=== PATIENT | female | born 1980 | race Hispanic/Latino ===

== ENCOUNTER 2016-12-28 12:27 | Emergency (ER) | payer MEDICAID ==
[2016-12-28 13:08] VITALS: BMI 31.0
--- NOTE | 2016-12-28 15:07 | US ---
EXAM: US Biophysical Profile Without Non-Stress Testing EXAM DATE/TIME: 12/28/2016 1:09 PM CLINICAL HISTORY: 36 years old, female; Signs and symptoms; Other: No fm; ; Additional info: No fm x 12 hrs. P6117. 25w 2d TECHNIQUE: Real-time ultrasound of the maternal pelvis for biophysical profile evaluation with image documentation. COMPARISON: No relevant prior studies available. FINDINGS: There is a single live intrauterine fetus in breech presentation. Estimated gestational age is 30 weeks 2 days. Estimated due date is 03/06/2017. Estimated gestational age by date is 28 weeks 6 days. Estimated weight is 1327 g (2 lbs. 15 oz.), at approximately 44 percentile. heart rate is 142 beats per minute. Placenta is posterior. Leading edge of placenta is 1.8 cm from internal os. Amniotic fluid volume is normal , BRIAN of 16.5. Cervix is closed, measuring 4 cm in length. BPD: 8.35 cm, 33 weeks 4 days HC: 27.2 cm, 29 weeks 5 days AC: 23.7 cm, 28 weeks FL: 5.6 cm, 29 weeks 4 days The visualized parts include 4 chamber heart, kidneys, 3 vessel cord with midline abdominal insertion, fluid filled stomach and bladder, limited spine. Biophysical profile was performed with following scores: tone 2 breathing 2 movements 2 Amniotic fluid 2 Total score is 8 of 8. IMPRESSION: 1. Single live intrauterine fetus at 30 weeks 2 days, breech presentation and low-lying posterior placenta. 2. Normal biophysical profile score.
--- NOTE | 2016-12-28 15:38 | OBHP ---
Datetime: 12/28/2016 13:00 IP Adm Impression: , intrauterine IP Chief Complaint Other: No movement IP Admit Plan: Observation/Evaluation Admit Comment, IP Provider: 36 y.o. , LMP unsure, BRENNA 04/10/17, per patient based on unsure LM P (had had a miscarriage 05/2016) - not yet had ultrasound in , EGA 25w 2d c/o no FM since 22 00 hours 12/27/16. Tired cold ice; took a shower; went for a walk - no improvement. Denies LOF, VB, contractions; +/- occ mild tightening to abdomen. care; [facility] - ; noted for A1 GDM. Toda y's fasting 86; 2 hr after breakfast 126. States average fasting 80s-100s; 2 hr post prandial <= 110s . last appointmtne 12/26/16; next appointment 01/09/17. States not yet seen by MFM. P Ob: x 7: 1) 2004, male, 4lb at 29 weeks; 2) 2006, female, 7lb; 3) 2007, female, 7lb 9oz; - all at [facility]; 4) 2008, female, 7lb 7oz; 5) 2009, female, 6lb 9oz - [place] [facility]; 6) 2011, male, 10lb, home delivery, reportedly, no GDM, (+) "toxemia". 7) 2013, male, 7lb, UMD, no GDM or pre -eclampsia. 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 Has had surgery x 2. Not on any meds. Last cardiac w ork up/evaluation, 11/2014. States has no exertional limitations. 2) cluster migraines PSH: 1) Age 13 - tonsillectomy. 2) 1997, laparoscopic left oophorectomy NKDA Meds: PNV - QD Soc Hx: denies current tobacco use; stopped a few years ago. Deines illicit drug or EtOH use. Wi th FOB x 2 yrs; lives with him and all her children. Unemployed Fam Hx: Mother alive 7 y.o. - h/o HTN, DM; s/P CVA x 2. Father age 64 - prostate cancer. Mat aunt - unk cancer. P.E.: as above. Mildly obese, in NAD. Awake, alert, oriented to time, person and place. Accompani ed by FOB Assessment: 36 y.o. P6117, 25w 2d, A1GDM, h/o cardiac arrhythmia c/o no FM x approx 14 hours. Nicola adam interview, FM witnessed. Bedside sono performed: (+) cardiac activity, (+) FBM; (+) FM; grossly normal amnioinic fluid. Clinically stable Plan: 1) OB ultrasound 2) Diabetic diet 3) Observe Addendum: 1515 hours - Patient returns from ultrasound: BRENNA 03/06/17. AGA 30w 2d; posterior, low-lying placenta. BRIAN 16 .56 cm. BPS 8/8. Assessment: 36 y.o. P6117, 30w 2d, A1 GDM, findings at ultrasound discussed with patient and FOB. Category 1 tracing. Clinically stable. Plan: 1) Discharge home 2) Reviewed S/S PTL 3) Keep scheduled appointments Pelvic Type - PN: Not Done Extremities - PN: Normal Abdomen - PN: Normal Back - PN: Normal Breast - PN: Not Done Lungs - PN: Normal Heart - PN: Normal Thyroid - PN: Not Done Neurologic - PN: Normal HEENT - PN: Normal General - PN: Normal FHR - Baseline A Provider: 150 Contraction Comments Provider: none Comments, ACOG Physical Exam: Abdomen: Obese. Gravid. Soft. Non tender. FM visualized during interv iew. Patient then reported feeling movement All other systems reviewed and are negative Vital Signs Provider: Reviewed Dilatation, Provider: deferred Genitourinary Exam: Not Done DTRs - PN: Not Done
[2016-12-28 19:18] VITALS: BP 116/60; PULSE 84; TEMP 99
== END 2016-12-28 15:03 | disposition home or self-care (01) ==
LOC: C.EROB 12:27
DX: O36.8130 Decreased fetal movements, third trimester, not applicable or unspecified (principal); O24.419 Gestational diabetes mellitus in pregnancy, unspecified control; Z3A.30 30 weeks gestation of pregnancy

== ENCOUNTER 2017-03-08 11:17 | Emergency (ER) | payer MEDICAID ==
--- NOTE | 2017-03-08 12:28 | OBHP ---
Datetime: 03/08/2017 12:11 IP Adm Impression: Term, intrauterine ; No Active Labor IP Chief Complaint Other: Back Pain IP Admit Plan: Observation/Evaluation; Discharge home Admit Comment, IP Provider: 36yo with an IUP at 38.6wks based on OB sonogram done 01/20/2017 a t 32wks gestation, reports here today c/0 intermittent episodes of Low back pain. She denies any VB o r LOF. She has GDMA 1 and goes to [facility] for care. Denies dysuria and frequency. TOCO- occasional uterine activity, FHR- Category 1 , Cx- 0/10/-3, Presentation as per limited beds althea sonogram; cephalic, Accucheck- 144 Assessment: IUP at 38.6wks Not in active labor GDMA1 Plan: D/C Home Follow up with the OB clinic in 2 days. Labor instructions given. Extremities - PN: Normal Abdomen - PN: Normal Lungs - PN: Normal Heart - PN: Normal Neurologic - PN: Normal General - PN: Normal Presentation-Admit: Vertex FHR - Baseline A Provider: 34.4 Membranes, Provider: Intact Contraction Comments Provider: Occasional Gestation - Est Wks by US: 34.4 EGA AdmitDate IP: 38.6 Vital Signs Provider: Reviewed IP Chief Complaint: Maternal discomfort NICHD Accel Fetus A IP Provider: 15X15 FHR Category Provider Fetus A: Category I NICHD Decel Fetus A IP Provider: None Dilatation, Provider: 0 Effacement, Provider: 10 Station, Provider: -3 Genitourinary Exam: Normal
[2017-03-08 16:36] VITALS: BP 131/83; PULSE 107; RESP 18; TEMP 98.5; O2SAT 93
== END 2017-03-08 12:35 | disposition home or self-care (01) ==
LOC: C.EROB 11:17
DX: O26.893 Other specified pregnancy related conditions, third trimester (principal); Z3A.38 38 weeks gestation of pregnancy

== ENCOUNTER 2017-03-17 11:42 | Inpatient (IN) | payer MEDICAID, OTHER ==
[2017-03-17 12:41] VITALS: BMI 31.6
[2017-03-17] MEDS ORDERED: Penicillin G 5 Million Unit Vial IVPB ONE ×2 (12:41→13:24)
[2017-03-17] MEDS ORDERED: Lactated Ringer's 1,000 ML IV SCH (12:45)
--- NOTE | 2017-03-17 13:01 | OBADHP ---
Datetime: 03/17/2017 12:46 Admit Comment, IP Provider: chief complaint-back pain and lower abdominal pain HPI 36 y/o at 41.4 wga with c/o back pain and lower abdominal pain for last few days.was seen in clinic today and sent over course AMA; GDMA1 diet controlled PMH denies PSH laparoscopic myomectomy; cholecystectomy OBGYN HX ; hx of PPH with 7th baby; had blood transfsuion Social hx denies tobacco use with A/P 36 y/o at 41.4 wga with back pain and abdominal pain.patient GDAM1.Post date -admit for induction of labor -start pen G for unknwon GBS -Cytotec 50mcg pox1 -monitor closely -type and cross for 2 units Pelvic Type - PN: Adequate Extremities - PN: Normal Abdomen - PN: Normal Back - PN: Normal Lungs - PN: Normal Heart - PN: Normal Neurologic - PN: Normal General - PN: Normal Weight - Estimated: 3400 Presentation-Admit: Vertex Contraction Comments Provider: irregular Gestation - Est Wks by US: 41.4 IP Hx Assessment: The History has been Reviewed and is Current Vital Signs Provider: Reviewed; Within Normal Limits IP Chief Complaint: Uterine contractions FHR Category Provider Fetus A: Category I Dilatation, Provider: 2 Effacement, Provider: 50 Station, Provider: -3 Genitourinary Exam: Normal DTRs - PN: Normal EGA AdmitDate IP: 41.4 IP Adm Impression: Postterm, intrauterine IP Admit Plan: Admit to unit; Initiate labor induction protocol Datetime: 03/08/2017 12:11 IP Chief Complaint Other: Back Pain FHR - Baseline A Provider: 34.4 Membranes, Provider: Intact NICHD Accel Fetus A IP Provider: 15X15 NICHD Decel Fetus A IP Provider: None Datetime: 12/28/2016 13:00 Breast - PN: Not Done Thyroid - PN: Not Done HEENT - PN: Normal Comments, ACOG Physical Exam: Abdomen: Obese. Gravid. Soft. Non tender. FM visualized during interv iew. Patient then reported feeling movement All other systems reviewed and are negative
[2017-03-17 13:37] LABS: SQUAMOUS EPITHIAL 4 /hpf (0-5); URINE BILIRUBIN NEGATIVE (NEGATIVE); URINE BLOOD NEGATIVE (NEGATIVE); URINE CALCIUM OXALATE CRYSTALS OCC /hpf (<OCC); URINE CLARITY Clear (Clear); URINE COLOR Yellow (YELLOW); URINE GLUCOSE (UA) NORMAL (Normal); URINE LEUKOCYTE ESTERASE 1+ Leu/uL (Negative); URINE NITRATE NEGATIVE (NEGATIVE); URINE PROTEIN NEGATIVE (NEGATIVE); URINE UROBILINOGEN NORMAL mg/dL (0.2-1.0)
[2017-03-17 13:48] LABS: ALBUMIN 3.6 g/dL (3.5-5.0); CALCIUM 8.7 mg/dl (8.6-10.4); GFR AFRICAN-AMERICAN > 60; GFR NON-AFRICAN AMERICAN > 60
[2017-03-17 13:57] LABS: ALT/SGPT 16 U/L (9-52); AST/SGOT 30 U/L (14-36); BLOOD UREA NITROGEN 9 mg/dL (7-17)
[2017-03-17 14:19] LABS: BASO % 0.4 % (0.0-2.0); EOS % 0.1 % (0.0-4.0); HEMOGLOBIN 10.9 g/dL (11.0-16.0); LYMPH # 2.2 K/uL (1.0-4.3); LYMPH % 23.1 % (20.0-40.0); MEAN CELL VOLUME 83.9 fL (81.0-99.0); MEAN CORPUSCULAR HEMOGLOBIN 28.6 pg (27.0-31.0); MEAN CORPUSCULAR HGB CONC 34.1 g/dL (33.0-37.0); MEAN PLATELET VOLUME 8.4 fL (7.2-11.7); MONO # 0.5 K/uL (0.0-0.8); MONO % 4.9 % (0.0-10.0); NEUT % 71.5 % (50.0-75.0); RBC 3.81 Mil/uL (3.80-5.20); RED CELL DISTRIBUTION WIDTH 13.7 % (11.5-14.5); WHITE BLOOD COUNT 9.7 K/uL (4.8-10.8)
[2017-03-17] MEDS ORDERED: Bupivacaine 0.125%/FentaNYL 200 ML EPI ONE (15:59)
[2017-03-17] MEDS ORDERED: Oxytocin 30 UNIT 30 UNITS/500 ML BAG IV PRN (17:19)
--- NOTE | 2017-03-17 17:21 | OBPN ---
Datetime: 03/17/2017 17:17 IP Progress Impression: Reassuring heart rate IP Procedures: Artificial ROM; Sterile Vag Exam IP Progress Plan: Continue present management Contraction Comments Provider: every 3-4min IP Progress Note Comment: S-patient cofmortable wth epidural O-VSS Afebrile FHT cat1 Tooc ctx q 3-4min sve 3-4/70/-2 A/P Patient being induced for post dates s/p cytotecx1 arom done start pit continue to monitor closely Vital Signs Provider: Reviewed FHR Category Provider Fetus A: Category I Dilatation, Provider: 3-4 Effacement, Provider: 70 Station, Provider: -2 Datetime: 03/17/2017 12:46 Gestation - Est Wks by US: 41.4 Weight - Estimated: 3400 Presentation-Admit: Vertex Datetime: 03/08/2017 12:11 Membranes, Provider: Intact FHR - Baseline A Provider: 34.4 NICHD Accel Fetus A IP Provider: 15X15 NICHD Decel Fetus A IP Provider: None
[2017-03-17] MEDS ORDERED: Oxytocin 30 UNIT 30 UNITS/500 ML BAG IV ONE (18:22)
[2017-03-17] MEDS ORDERED: Oxycodone/Acetaminophen 5/325 mg Tab PO PRN (21:59)
--- NOTE | 2017-03-17 21:59 | OBDS ---
DELIVERY PERSONNEL Anesthesiologist: Kenya Chew MD MATERNAL INFORMATION Delivery Anesthesia: Epidural Estimated Blood Loss (ml): 300 Provider Comments: of a male infant from [place] position body and shoulders delivered without difficulty cord clamped and cut.cord blood collected.prophylactically im metehrgine 0.2mg im given.iv fluids mixed with pitocin started.placenta spontaneously delivered.first degree perineal laceration repaired with 2-0 chromic Fundus firm patient and stable cytotec 1000mcg placed rectally bleeding minimal LABOR SUMMARY EDC: 03/06/2017 00:00 No. Babies in Womb: 1 Attempted: No Labor Anesthesia: Epidural LABOR INFORMATION Onset of Labor: 03/17/2017 16:00 Complete Dilatation: 03/17/2017 21:14 Cervical Ripening Agents: Cytotec @ (Annotations: 50) Group B Beta Strep: Done, Result Unknown Steroids Given: None Reason Steroids Not Administered: Not Applicable MEMBRANES Membranes Rupture Method: Artificial Rupture of Membranes: 03/17/2017 17:15 Length of Rupture (hrs): 4.15 Amniotic Fluid Color: Clear Amniotic Fluid Amount: None Amniotic Fluid Odor: Normal STAGES OF LABOR Stage 1 hrs: 5 Stage 1 min: 14 Stage 2 hrs: 0 Stage 2 min: 10 Stage 3 hrs: 0 Stage 3 min: 3 Total Time in Labor hrs: 5 Total Time in Labor min: 27 VAGINAL DELIVERY Episiotomy: None Laceration Extension: First Degree Laceration Type: Perineal Laceration Repair: Yes Laceration Repair Note: repaired with figure of 8 stitch using 2-0 chromic Sponge Count Correct: Yes; Vaginal Sweep Performed Sharps Count Correct: Yes BABY A INFORMATION Infant Delivery Date/Time: 03/17/2017 21:24 Method of Delivery: Vaginal Born in Route : No : N/A Forceps: N/A Vacuum Extraction: N/A Shoulder Dystocia : No SHOULDER DYSTOCIA BABY A Infant Delivery Date/Time: 03/17/2017 21:24 PRESENTATION/POSITION BABY A Presentation: Cephalic Cephalic Presentation: Vertex Vertex Position: Left Occipital Anterior Breech Presentation: N/A PLACENTA INFORMATION BABY A Placenta Delivery Time : 03/17/2017 21:27 Placenta Method of Delivery: Spontaneous Placenta Status: Delivered SCORES BABY A Heart Rate 1 min: >100 bpm Resp Effort 1 min: Good Cry Reflex Irritability 1 min: Cough or Sneeze or Pulls Away Muscle Tone 1 min: Active Motion Color 1 min: Body [place], Extremities Blue SCORE 1 MIN: 9 Heart Rate 5 min: >100 bpm Resp Effort 5 min: Good Cry Reflex Irritability 5 min: Cough or Sneeze or Pulls Away Muscle Tone 5 min: Active Motion Color 5 min: Body [place], Extremities Blue SCORE 5 MIN: 9 INFANT INFORMATION BABY A Gestational Age at Delivery: 41.4 Gestational Status: Post-term Infant Outcome : Liveborn Infant Condition : Stable Sex: Male IDENTIFICATION/MEDS BABY A ID Band Number: [id number] Sensor Number: [id number] WEIGHT/LENGTH BABY A Birthweight (gms): 3625 Infant Weight (lb): 8 Infant Weight (oz): 0 Length Inches: 20.00 Infant Length cms: 50.8 CORD INFORMATION BABY A No. Cord Vessels: 3 [place]uch[place] Cord : N/A Cord Blood Taken: Yes Suction: Mouth
[2017-03-17] MEDS ORDERED: Benzocaine/Menthol 20%-0.5% Topical Spray (60 ml) TOP SCH (22:00)
[2017-03-18 06:44] LABS: BASO % 0.2 % (0.0-2.0); EOS # 0.1 K/uL (0.0-0.7); EOS % 0.5 % (0.0-4.0); HEMOGLOBIN 10.4 g/dL (11.0-16.0); LYMPH # 2.5 K/uL (1.0-4.3); LYMPH % 23.4 % (20.0-40.0); MEAN CELL VOLUME 84.4 fL (81.0-99.0); MEAN CORPUSCULAR HEMOGLOBIN 28.8 pg (27.0-31.0); MEAN CORPUSCULAR HGB CONC 34.1 g/dL (33.0-37.0); MEAN PLATELET VOLUME 8.2 fL (7.2-11.7); MONO # 0.5 K/uL (0.0-0.8); MONO % 5.1 % (0.0-10.0); NEUT # 7.5 K/uL (1.8-7.0); NEUT % 70.8 % (50.0-75.0); RBC 3.6 Mil/uL (3.80-5.20); RED CELL DISTRIBUTION WIDTH 13.5 % (11.5-14.5); WHITE BLOOD COUNT 10.6 K/uL (4.8-10.8)
[2017-03-18 11:27] LABS: BLOOD UREA NITROGEN 8 mg/dL (7-17); CALCIUM 8.3 mg/dl (8.6-10.4); GFR AFRICAN-AMERICAN > 60; GFR NON-AFRICAN AMERICAN > 60
[2017-03-19 00:31] VITALS: RESP 20
[2017-03-19 07:52] VITALS: BP 114/67; PULSE 80; O2SAT 97
[2017-03-19] MEDS ORDERED: Influenza Vaccine 60 mcg/0.5 mL SYR (4YR UP) IM ONE (10:04)
--- NOTE | 2017-03-19 10:33 | OBDCSUM ---
Datetime: 03/08/2017 12:22 Discharge Instructions, Provider: Routine instructions given Discharge Diagnosis, Provider: Postterm Delivery Contraception discussed, Prov: Yes Disch Activity Restrictions: No sexual activity; Nothing in vagina - [place], tampons, douche Discharge Comment, Provider: f/u in [place] for depo and for sched of btl Contraception after Delivery: Depo-Provera; Tubal Ligation
--- NOTE | 2017-03-19 10:35 | OBPPN ---
Datetime: 03/19/2017 10:28 PP Pain Prov: Within normal limits PP Nausea Prov: Denies PP Flatus Prov: Yes PP BM Prov: Yes PP Breasts Prov: Normal PP Heart Prov: Normal PP Lungs Prov: Normal PP Abdomen/Uterus Prov: Normal PP Lochia Prov: Normal PP Vulva/Perineum Prov: Normal PP CVA Tenderness Prov: Normal PP Extremities Prov: Normal PP Progress Prov: Not Applicable PP Impression Prov: Normal progression PP Plan Prov: Discharge PP Progress Note Prov: s: no c/o. pt states she is not going to breastfeed. she understands benefits of . o: hgb 10.4 i: p: dc home f/u in clinic for depo rout pp precautions IP PP Procedures: None Datetime: 03/18/2017 07:38 PP C/S Incision Prov: Not Applicable
[2017-03-19 20:47] VITALS: TEMP 98
== END 2017-03-19 13:45 | disposition home or self-care (01) | DRG 372 ==
LOC: C.EROB 11:42 → C.4D 12:48 → C.4M 03-18 00:35
PROVIDERS: ADMIT Student in an Organized Health Care Education/Training Program; ATTEND Student in an Organized Health Care Education/Training Program
PROC: 10E0XZZ Delivery of Products of Conception, External Approach (ICD-10-PCS; principal; 2017-03-17)
PROC: 0HQ9XZZ Repair Perineum Skin, External Approach (ICD-10-PCS; 2017-03-17)
DX: O48.0 Post-term pregnancy (principal); O24.420 Gestational diabetes mellitus in childbirth, diet controlled; O70.0 First degree perineal laceration during delivery; Z3A.41 41 weeks gestation of pregnancy; Z37.0 Single live birth